=== PATIENT | female | born 1990 | race American Indian/Alaskan Native ===

== ENCOUNTER 2018-08-23 22:39 | Inpatient (IN) | payer OTHER ==
[~2018-08-23] VITALS: Ht 165 cm; Wt 108.9 kg
[2018-08-24] MEDS ORDERED: IBUPROFEN800 MG PO (02:36)
[2018-08-24] MEDS ORDERED: LEVOTHYROXINE50 MCG PO (12:47)
--- NOTE | 2018-08-24 23:51 | HP ---
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 She presented to the emergency room at approximately 2300 hours on August 23, 2018, and was evaluated by Dr. Luu for complaints of right upper abdominal pain. Notably, she is 4 weeks from her 3rd child. The pain was persistent and unrelenting. She has had similar such pain over the past 2 weeks, which always resolved. There is pain in the subscapular area as well. She was admitted, given intravenous antibiotics, and so forth upon my review of her case with Dr. Luu, but remains with abdominal pain this morning. She has had no diarrhea, hematemesis, or blood per rectum. She has had nausea, but no actual vomiting. PAST MEDICAL HISTORY: Includes asthma. SOCIAL HISTORY: She has 3 children. She has a life partner who is with her currently. Her most recent child is home with her family. She does not smoke. ALLERGIES: She has no known drug allergies. MEDICATIONS: She has no ongoing home medications. REVIEW OF SYSTEMS: Denies any shortness of breath or chest pain. She has had no dysuria or hematuria. PHYSICAL EXAMINATION: GENERAL: Somewhat obese [place] woman who looks to be in mild discomfort. She does not look systemically toxic. She is alert and oriented. HEENT: Mucous membranes are slightly moist. Trachea is midline. CHEST: Clear. HEART: Regular without murmur. ABDOMEN: Obese, but soft. She has tenderness in the right upper abdomen, but no mass. No ascites. She does have abdominal obesity. EXTREMITIES: Showed no clubbing, cyanosis, or edema. Electronically Signed By: KENNETH OTTO MD 08/24/18 2338 PATIENT NAME: CARLY GUTIÉRREZ HISTORY AND PHYSICAL DATE OF : [birth year] REPORT #: [id number] PHYSICIAN: KENNETH OTTO MD PCP: SKINNY NICKERSON REPORT IS CONFIDENTIAL AND NOT TO BE RELEASED WITHOUT AUTHORIZATION [facility] [address] [place], [place] [address] Signed LABORATORY STUDIES: From the emergency room show white count of 6.5, hematocrit 41.3, and platelets 246,000. Chem profile appears to be normal. Liver enzymes normal. Lipase 10. Urinalysis shows large amount of blood, 30 RBCs. Abdominal ultrasound is examined, which shows normal liver parenchyma. The gallbladder was visualized and shows thickening and what appears to be substance within the gallbladder itself. Interpretation by the radiologist showed a distended gallbladder, multiple stones, mild gallbladder wall thickening. The intrahepatic bile ducts were considered nondilated. Right kidney is normal. ASSESSMENT: The patient has acute calculous cholecystitis. She has had symptoms up until this point, at which she has unrelenting symptoms now. She has certain risk factors for biliary disease including heritage, multiple children, obesity, and probable family history of biliary disease as well. She is getting ongoing fluid resuscitation and parenteral antibiotics and parenteral pain control. I have recommended cholecystectomy. Discussed the pathophysiology of biliary disease with her in detail. I would recommend laparoscopic cholecystectomy, possible open procedure. Unlikely, but possible would be a common bile duct exploration. The risks of bleeding, infection, bile duct injury, need for open procedure, and failure to cure her symptoms were reviewed in detail. It is uncertain why she has hematuria. She is not known to have gross hematuria particularly. When aware of a test and however unlikely that would be, will obtain beta-HCG. She understands the risks and so forth and wished to proceed. We will plan to do that today. MD AMBERLY Baer/ELVERL /[id number] cc: Ankit Luu MD Electronically Signed By: KENNETH OTTO MD 08/24/182350 PATIENT NAME: CARLY GUTIÉRREZ HISTORY AND PHYSICAL DATE OF : [birth year] REPORT #: [id number] PHYSICIAN: KENNETH OTTO MD PCP: SKINNY NICKERSON REPORT IS CONFIDENTIAL AND NOT TO BE RELEASED WITHOUT AUTHORIZATION [facility] [address] [place], [place] [address] Signed Copies: ANKIT LUU MD ~ Electronically Signed By: KENNETH OTTO MD 08/24/182350 PATIENT NAME: CARLY GUTIÉRREZ CHARLES HISTORY AND PHYSICAL DATE OF : [birth year] REPORT #: [id number] PHYSICIAN: KENNETH OTTO MD PCP: SKINNY NICKERSON REPORT IS CONFIDENTIAL AND NOT TO BE RELEASED WITHOUT AUTHORIZATION
--- NOTE | 2018-08-24 23:51 | OR ---
[facility] [address] [place], [place] [address] Signed DATE OF OPERATION: 08/24/2018 SURGEON: Kenneth Otto MD PREOPERATIVE DIAGNOSES: 1. Acute calculous cholecystitis. 2. state, greater than four weeks. POSTOPERATIVE DIAGNOSIS: Acute calculous cholecystitis with common duct stones (choledocholithiasis). PROCEDURES PERFORMED: 1. Laparoscopic cholecystectomy with cholangiogram and laparoscopic common bile duct exploration. 2. Flexible choledochoscopy. 3. Surgeon-directed fluoroscopy. 4. Completion angiogram (prolonged, complicated, difficult). ANESTHESIA: General endotracheal, Bita Ulysses, OIL DELIVERER, and local 20 mL of 0.25% Marcaine with epinephrine. INDICATION: This 28-year-old woman is about a month and has had about two weeks of episodic right subcostal and epigastric pain. She was admitted late last night having had unrelenting right subcostal and epigastric pain. Evaluation in the emergency room showed her to have a thickened gallbladder wall, multiple gallstones, but no sign of intrahepatic ductal dilatation. Her liver enzymes are normal and amylase normal. She has been fluid resuscitated, given intravenous antibiotics, parenteral pain medication, and so forth. Admitted at this time to undergo a laparoscopic cholecystectomy, possible open procedure. Additionally, the possibility of common duct exploration has been reviewed with her and her significant other. She understands all of this and wished to proceed. FINDINGS: Indeed, the gallbladder was markedly inflamed. It was quite edematous. Initial cholangiogram showed good filling of the biliary tree, but no passage of contrast into the duodenum. A transcystic duct laparoscopic common duct exploration was undertaken, which included a balloon dilation as well as irrigation as well as flexible choledochoscopy and crushing of residual stone debris. Completion cholangiogram showed Electronically Signed By: KENNETH OTTO MD 08/24/18 0780 PATIENT NAME: CARLY GUTIÉRREZ OPERATIVE REPORT DATE OF : [birth year] REPORT #: [id number] PHYSICIAN: KENNETH OTTO MD PCP: SKINNY NICKERSON REPORT IS CONFIDENTIAL AND NOT TO BE RELEASED WITHOUT AUTHORIZATION [facility] [address] [place], [place] [address] Signed no evidence of retained stone or impediment to bile flow into the biliary tree. The operation was prolonged, complicated, and difficult lasting four times longer than usual. DESCRIPTION OF PROCEDURE: The patient was brought to the operating room, given a general endotracheal anesthetic. Preoperative antibiotic Ancef had been given. Sequential compression device stockings were used and heparin subcutaneously administered. The abdomen was prepared with chlorhexidine solution and draped sterilely. An infraumbilical incision was made and using an open Heidy cannula technique, pneumoperitoneum was achieved to a level 14 mmHg of carbon dioxide gas. Intraabdominal inspection showed no sign of ascites or carcinomatosis. The patient is rather obese and the abdominal wall had a thick abdominal pannus and there was fair amount of intraabdominal fat as well. The liver appeared normal, but the gallbladder was markedly tense and distended and inflamed. Three additional trocars were placed in usual configuration in the subxiphoid, right midclavicular, and right anterior axillary line. The gallbladder was elevated cephalad and retracted laterally. Intense inflammation and edema of the peritoneum overlying the gallbladder was noted. Using blunt and electrocautery dissection, the triangle of Calot was dissected free with all due care. A small tear in the infundibulum allowed for egress of dark bile and minimal sand-like stone debris. This rent was easily grasped. Using blunt and electrocautery dissection, the triangle of Calot was dissected free. This was rather laborious dissection as it was quite inflamed with oozing and so forth. Meticulous care was made to ascertain the anatomic structures. Once the cystic duct was well identified and clips had been applied to cystic arterial branches as necessary, the cystic duct was carefully examined and found to be rather dilated. The cystic duct was milked in a retrograde fashion and the clip was applied across gallbladder cystic duct junction. A transverse choledochotomy was made in the cystic duct and egress of dark black bile was noted from the cystic duct. There was no sign of egress of stones. Using the Orourke type cholangiocatheter, intraoperative cholangiography was undertaken with surgeon-directed fluoroscopy. Free flow of contrast was noted into the biliary tree, but an impediment of flow into the duodenum was noted. There was no flow into the duodenum ultimately. Glucagon was administered and subsequently intrabiliary local anesthetic Marcaine, but again no evidence of egress of contrast into the duodenum with repeated cholangiogram. It is deemed possible that she may have obstruction at the duct, although there was no meniscus or clear evidence of stone at that point. A Taut catheter kit was obtained and a right upper quadrant incision additionally made Electronically Signed By: KENNETH OTTO MD 08/24/18 8423 PATIENT NAME: CARLY GUTIÉRREZ OPERATIVE REPORT DATE OF : [birth year] REPORT #: [id number] PHYSICIAN: KENNETH OTTO MD PCP: SKINNY NICKERSON REPORT IS CONFIDENTIAL AND NOT TO BE RELEASED WITHOUT AUTHORIZATION [address], [place] [address] Signed and the Taut trocar placed. This was allowed to align with the cystic duct well. Using a flexible urologic plastic flexible tipped wire under direct fluoroscopic view, the wire was introduced into the cystic duct and into the biliary tree with prompt emptying into the duodenum itself. A Taut balloon catheter was then passed over the wire, which insinuated itself down the duct and then passed across the ampulla quite easily into the duodenum. A test dose of contrast through the Taut catheter showed contrast to be in the duodenum itself. The catheter was withdrawn over the wire with two radiopaque markers noted. Unfortunately, it passed more proximal than the ampulla as an intention to dilate the ampulla had been anticipated. The catheter could not be more fully advanced beyond that area. On that basis, the catheter was withdrawn in a short distance and a repeat cholangiogram undertaken through the Taut catheter showing what appeared to be a filling defect, which was mobile within the duct. The balloon was then withdrawn to the cystic duct itself and inflated and dilated so as to allow for passage of a flexible choledochoscope. The Taut catheter was removed and a flexible choledochoscope with all due care was passed down the cystic duct into the biliary tree. Irrigation was undertaken with continuous saline through the scope itself. The scope itself had some fine debris of stone material, but no large stone initially. The scope was withdrawn and a larger formed stone was seen. Using a basket through the flexible choledochoscope, the stone was grasped, but it was soft enough that it crushed and was essentially not retrievable in that way. Further irrigation was undertaken and more evaluation with the scope showed no sign of other residual stone. Photographs were taken. The choledochoscope was removed and a Taut catheter replaced anticipating cholangiogram. This did show contrast into the biliary tree and into the duodenum. Additional flushing with contrast was undertaken. The catheter was removed and plans made for completion cholangiogram with the usual cholangiogram set, however, it was found that the cystic duct had transected. This made it more difficult, but not possible by any means to perform completion cholangiography. An additional port was placed in the epigastric area allowing for grasping of the cystic duct and the Orourke type cholangiocatheter and clamp allowed to pass into the cystic duct. Cholangiogram was then performed showing clearance of the duct, no sign of residual filling defect, no impediment to flow. The catheter was removed and the cystic duct was triply clipped and divided. The gallbladder was then dissected free in a retrograde fashion using electrocautery. The gallbladder was placed in an endobag and extracted through the infraumbilical port site, opened on the back table and found to have innumerable small and large stones, chronic and acute inflammation, but no sign of neoplasm proper. Irrigation was undertaken in the subhepatic space. Cautery was used to secure complete hemostasis. There was no sign of bile leak, bleeding, or other problems. Some Jose powdered hemostatic agent was insufflated to the hepatic bed through one of the trocar sites on the right. A 7 mm flat Layo drain was insinuated into the subhepatic space and secured to the skin with nylon suture and later attached to bulb suction. Excess irrigation fluid was suctioned Electronically Signed By: KENNETH OTTO MD 08/24/18 1152 PATIENT NAME: CARLY GUTIÉRREZ OPERATIVE REPORT DATE OF : [birth year] REPORT #: [id number] PHYSICIAN: KENNETH OTTO MD PCP: SKINNY NICKERSON REPORT IS CONFIDENTIAL AND NOT TO BE RELEASED WITHOUT AUTHORIZATION [address] [address] Signed free. There was no residual stone material, bile, or other problem. The trocars were removed under direct visualization showing no sign of bleeding. The infraumbilical fascial incision was reapproximated with multiple interrupted 0 Vicryl sutures. All wounds were copiously irrigated with saline solution. Skin closed with interrupted 3-0 Vicryl. The patient was ultimately extubated and transferred to recovery in good condition having suffered no complications. Sponge, needle, and instruments counts were correct x3. The operation was prolonged, complicated, and difficult lasting at least four times longer than usual. MD AMBERLY Baer/ELVERL /[id number] cc: [facility] Chanel Luu MD Copies: CHANEL LUU MD ~ Electronically Signed By: KENNETH OTTO MD 08/24/18 2351 PATIENT NAME: CARLY GUTIÉRREZ OPERATIVE REPORT DATE OF : [birth year] REPORT #: [id number] PHYSICIAN: KENNETH OTTO MD PCP: SKINNY NICKERSON REPORT IS CONFIDENTIAL AND NOT TO BE RELEASED WITHOUT AUTHORIZATION
[2018-08-30] MEDS ORDERED: HYDROCODON-ACE1 EA11 PO (16:32)
[2018-08-30] MEDS ORDERED: MAPAP325 MG PO (16:33)
--- NOTE | 2018-09-03 15:01 | DS ---
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 She presented to the emergency room at approximately 11 p.m. on August 23, 2018, was evaluated by Dr. Luu for complaints of right upper abdominal pain. She is four weeks from her 3rd child. The pain was persistent and unrelenting. She had similar pain over the past 2 weeks, which always resolved. Subscapular pain is noted as well. An abdominal ultrasound was performed, which showed normal liver parenchyma. No sign of intrahepatic ductal dilatation. The gallbladder was visualized, showed thickening and what appeared to be amorphous substance within the gallbladder itself. Multiple stones were confirmed and mild gallbladder wall thickening was noted. She is admitted for further evaluation and care. PHYSICAL EXAMINATION: GENERAL: Showed a somewhat obese, [place] woman, who looked to be in mild discomfort. She does not look systemically toxic. HEENT: Mucous membranes are slightly moist. Trachea midline. CHEST: Clear. HEART: Regular without murmur. ABDOMEN: Obese, but soft. She had tenderness in the right upper abdomen, but no mass. She had no ascites. EXTREMITIES: She had no clubbing, cyanosis, or edema of extremities. LABORATORY STUDIES: Showed a white count of 6.5, hematocrit 41.3, and platelets 246,000. Chem profile normal. Liver enzymes normal. Lipase 10. Urinalysis showed 30 rbc's per high-power field, likely related to vaginal minimal bleeding. HOSPITAL COURSE: The patient was admitted and given intravenous fluid resuscitation, Ancef antibiotic, and parenteral pain medication. On August 24, 2018, she underwent laparoscopic cholecystectomy with cholangiogram. Findings on cholangiogram showed no filling of the duodenum, but no clear evidence of retained stone. On that basis, a transcystic duct laparoscopic bile duct exploration was undertaken. This included flexible choledochoscopy down the cystic duct into the common duct. She is noted to have a stone, which upon grasping with this basket became disintegrated. Additional evaluation and irrigation showed no sign of other stone. Of note, a Taut catheter system was used to dilate the cystic duct and additionally noted Electronically Signed By: KENNETH OTTO MD 09/03/18 1501 PATIENT NAME: CARLY GUTIÉRREZ DISCHARGE SUMMARY DATE OF : [birth year] REPORT #: [id number] PHYSICIAN: KENNETH OTTO MD PCP: SKINNY NICKERSON REPORT IS CONFIDENTIAL AND NOT TO BE RELEASED WITHOUT AUTHORIZATION [facility] [address] [place], [place] [address] Signed was the catheter was passed down the common bile duct into the duodenum at the outset of the procedure. A completion cholangiogram showed no sign of retained stone. During the course of her laparoscopic common duct exploration, there was with irrigation noted to be a filling defect consistent with stone. Hence, the application of the flexible choledochoscope as well. A drain was placed at the time of operation as well. The gallbladder itself was quite markedly inflamed, thickened, and edematous. The cystic duct was quite viable and secure application of hemoclips was noted. Postoperatively, she was noted to have elevated liver enzymes, AST, and ALT as well as bilirubin. Preoperative bilirubin was 0.5, immediately postoperative bilirubin 3.6. The bilirubin stayed at the 4.0-4.4 range. By August 28, liver enzymes remaining somewhat elevated including alkaline phosphatase. An MRCP was performed. This showed a small 2-3 mm stone in the common duct in the midportion without sign of intrahepatic ductal dilatation. Examination of the subhepatic drain on that very day showed that there was a bile leak, which had not heretofore been the case. This may well account for her downward trend of her bilirubin. Alkaline phosphatase remained elevated at about 298. Her other liver enzymes had progressive improvement other than alkaline phosphatase. Given the size of the stone (small at 3 mm), in most situations I would simply allow passage of the stone unless symptoms would occur, in which case ERCP, papillotomy may be required. Since the bile leak developed, however, this would indicate the need for ERCP papillotomy, possible stone retrieval and stenting to expedite a bile leak resolution. I would be quite surprised if bile leak was from the cystic duct, though it is possible if the intrahepatic biliary ductal pressures were high. I contacted Dr. Gonzalo Orozco on August 30, 2018, and reviewed the case with him. He graciously accepts the patient for outpatient ERCP, papillotomy, stent placement and stone retrieval as possible. [facility]. She will be discharged home with a drain in place of course. It is expected the drain will remain in place until there is no evidence of bile leak and will be removed in my office. Subsequent repeat endoscopic evaluation and removal of the stent will be anticipated later. Complete medical records will be sent with the patient as well as a disc of her imaging studies. DISCHARGE DIAGNOSES: Electronically Signed By: KENNETH OTTO MD 09/03/18 1501 PATIENT NAME: CARLY GUTIÉRREZ CHARLES DISCHARGE SUMMARY DATE OF : [birth year] REPORT #: [id number] PHYSICIAN: KENNETH OTTO MD PCP: SKINNY NICKERSON REPORT IS CONFIDENTIAL AND NOT TO BE RELEASED WITHOUT AUTHORIZATION [facility] [address] [place], [place] [address] Signed 1. Severe calculous cholecystitis with choledocholithiasis, status post laparoscopic cholecystectomy with laparoscopic common bile duct exploration and flexible choledochoscopy on August 24, 2018. 2. Retained common bile duct stone noted on MRCP, August 28, 2018. 3. New onset bile leak, August 28, 2018. Drain in place. 4. state 5 weeks, 3rd child. PERTINENT DISCHARGE LABORATORY STUDIES: On August 29, 2018, white count 5.1, hematocrit 36.0, and platelets 248,000. Electrolytes normal. Creatinine 0.76, glucose 102, total bilirubin 1.6, ALT 57, alkaline phosphatase 363. Kenneth Otto MD /ELVERL /[id number] cc: [facility] Dr. Miriam Ricci [facility] Dr. Gonzalo Orozco [facility] Chanel Luu MD Copies: [facility] CHANEL LUU MD ~ Electronically Signed By: KENNETH OTTO MD 09/03/18 1501 PATIENT NAME: CARLY GUTIÉRREZ DISCHARGE SUMMARY DATE OF : [birth year] REPORT #: [id number] PHYSICIAN: KENNETH OTTO MD PCP: SKINNY NICKERSON REPORT IS CONFIDENTIAL AND NOT TO BE RELEASED WITHOUT AUTHORIZATION
== END 2018-08-30 18:10 | disposition home or self-care (01) | DRG 769 ==
LOC: ED 22:39 → MS 22:40
PROVIDERS: ADMIT Surgery
PROC: BF13YZZ Fluoroscopy of Gallbladder and Bile Ducts using Other Contrast (ICD-10-PCS; 2018-08-24)
PROC: 0FC94ZZ Extirpation of Matter from Common Bile Duct, Percutaneous Endoscopic Approach (ICD-10-PCS; 2018-08-24)
PROC: 0FT44ZZ Resection of Gallbladder, Percutaneous Endoscopic Approach (ICD-10-PCS; principal; 2018-08-24 12:30)
DX: O99.89 Other specified diseases and conditions complicating pregnancy, childbirth and the puerperium (principal); K81.0 Acute cholecystitis; K80.00 Calculus of gallbladder with acute cholecystitis without obstruction; E66.9 Obesity, unspecified
CPT/HCPCS: 00790; 36415; 74181; 74300; 76705; 80053; 81001; 82150; 82247; 82465; 83615; 83690; 84100; 84478; 84550; 84703; 85025; 94762; 96361; 96374; 96375; 99285-25; C1894; G0378; J0131; J0330; J0690; J0735; J1100; J1170; J1610; J1644; J1885; J2250; J2270; J2405; J2704; J3010; J3475; J7040; J7120; Q9967

== ENCOUNTER 2018-09-16 11:07 | Emergency (ER) | payer OTHER ==
[~2018-09-16] VITALS: Ht 165.1 cm; Wt 99.8 kg
[~2018-09-16 11:07] MED LIST: HYDROCODON-ACE1 EA11 PO; IBUPROFEN800 MG PO; LEVOTHYROXINE50 MCG PO; MAPAP325 MG PO
--- OUTSIDE RECORDS SUMMARY | 2018-09-16 11:12 | XMS ---
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 - 2 Visits in 30 Days CARE PROVIDERS There are no care providers on record at this time. Josr has no Care Guidelines for this patient. Joseph[facility] VISIT COUNT (12 MO.) [facility] TOTAL 2 NOTE: Visits indicate total known visits. ED/C VISIT TRACKING (12 MO.) 09/16/2018 11:08 [facility] [place] TYPE: Emergency COMPLAINT: - RT FLANK PAIN, POST PROBLEM 08/23/2018 22:39 [facility] TYPE: Emergency COMPLAINT: - ABD PAIN INPATIENT VISIT TRACKING (12 MO.) 08/24/2018 09:05 [facility] TYPE: Medical Surgical COMPLAINT: - ACUTE CHOLECYSTITIS DIAGNOSES: - Obesity, unspecified - Obesity, unspecified - Acute cholecystitis - Acute cholecystitis - Calculus of gallbladder with acute cholecystitis without obstruction - Other specified diseases and conditions complicating , childbirth and the puerperium - Calculus of gallbladder with acute cholecystitis without obstruction 07/27/2018 23:05 [facility] [place] TYPE: [facility] COMPLAINT: - LABOR DIAGNOSES: - Abnormal cytological finding on screening of mother - 39 weeks gestation of - Other longterm (current) drug therapy - Subclinical iodine-deficiency hypothyroidism - Abnormal cytological finding on screening of mother - Single live - Other longterm (current) drug therapy - Personal history of other infectious and parasitic diseases - Endocrine, nutritional and metabolic diseases complicating , third trimester - Encounter for supervision of normal , unspecified, third trimester - Single live - First degree perineal laceration during delivery - Encounter for full-term uncomplicated delivery - Subclinical iodine-deficiency hypothyroidism - 39 weeks gestation of - Personal history of other infectious and parasitic diseases - First degree perineal laceration during delivery - Endocrine, nutritional and metabolic diseases complicating childbirth - Endocrine, nutritional and metabolic diseases complicating childbirth [email or web address]
== END 2018-09-16 11:38 | disposition home or self-care (01) ==
LOC: ED 11:07
DX: Z48.03 Encounter for change or removal of drains (principal); J45.909 Unspecified asthma, uncomplicated; Z79.899 Other long term (current) drug therapy
CPT/HCPCS: 99283